=== PATIENT | female | born 1990 | race Caucasian/White ===

== ENCOUNTER → 2020-06-12 10:37 | Outpatient (BNVA) | payer OTHER, SELFPAY | PROVIDERS: PCP Internal Medicine; Visit Provider Hospitalist | DX: Z76.89 Persons encountering health services in other specified circumstances (principal) ==

== ENCOUNTER 2021-06-05 15:11 | Outpatient (REF) | payer OTHER, SELFPAY ==
--- NOTE | 2021-06-05 16:59 | PFT_ITS ---
FLOWS: FEV1 of 111% of predicted at 3.14 L. FVC 108% of predicted at 3.60 L. FEV1 to FVC ratio of 0.87. No bronchodilator response except in small to medium airways. LUNG VOLUMES: Total lung capacity 105% of predicted at 4.67 L. Residual volume 87% of predicted at 1.04 L. Slow vital capacity 111% of predicted at 3.64 L. Expiratory reserve volume 90% of predicted at 1.11 L. Diffusion capacity is normal. IMPRESSION: No obstructive or restrictive ventilatory defect. No bronchodilator response except in small to medium airways. Hunter Ford MD AP/MODL / [id number]
== END 2021-06-05 15:12 | disposition home or self-care (01) ==
LOC: HO.RESP 15:11
PROVIDERS: PCP Pediatrics; Visit Provider Hospitalist
DX: J45.40 Moderate persistent asthma, uncomplicated (principal)
CPT/HCPCS: 94060; 94727; 94729

== ENCOUNTER → 2021-06-30 09:02 | Outpatient (BNVA) | payer OTHER, SELFPAY | PROVIDERS: PCP Internal Medicine; Visit Provider Hospitalist ==